=== PATIENT | female | born 1985 | race Native Hawaiian/Other Pacific Islander ===

== ENCOUNTER 2019-03-01 15:50 | Emergency (ER) | payer SELFPAY ==
[2019-03-01 18:32] VITALS: BP 125/91
[2019-03-01] MEDS ORDERED: IBUPROFEN 800 MG TAB PO ONE (18:32)
--- NOTE | 2019-03-01 18:34 | Event Note ---
ED Screening Note Date of service: 03/01/19 Time: 18:31 ED Screening Note: 33 y o f presents withfacial swelling and pain x 2 days denies dental pain states pain is radiating upwards to eyes right sided facial cellulitis This initial assessment/diagnostic orders/clinical plan/treatment(s) is/are subject to change based on patients health status, clinical progression and re- assessment by fellow clinical providers in the ED. Further treatment and workup at subsequent clinical providers discretion. Patient/guardian urged not to elope from the ED as their condition may be serious if not clinically assessed and managed. Initial orders include: motrin in triage acc eval
[2019-03-01] MEDS ORDERED: CLINDAMYCIN 300 MG CAP PO ONE (21:26)
[2019-03-01] MEDS ORDERED: ONDANSETRON 4 MG ODT TAB PO ONE (21:26)
[2019-03-01] MEDS ORDERED: SULFAMETHOXAZOLE/TRIMETHOPRIM 800/160MG DS TAB PO ONE (21:26)
[2019-03-01] MEDS ORDERED: HYDROcodone/ACETAMINOPHEN 5-325 MG TAB PO ONE (21:26)
--- NOTE | 2019-03-01 22:04 | Emergency Department Report ---
ED General Adult HPI - General Chief complaint: Dental/Oral Stated complaint: FACE HURT/FEVER/HEADACHE Source: patient Mode of arrival: Ambulatory Limitations: Language Barrier - History of Present Illness Initial comments: Patient is a 33-year-old female with no past medical history who presents to the ED with complaint of acute onset persistent painful swelling nonfluctuant erythematous maculopapular rash on right occipital facial area for the last 4 days. Patient states that the rash began as a small papule and subsequently increased in size she continued to squeeze and pruritus on the rash to drain the contents. Patient denies dizziness, fever, chills, nausea, vomiting, headache, chest pain, shortness of breath, sore throat, change in vision, traumatic injury, cough or abdominal pain. Patient states that she has been taking [id number] pain medications with no relief. MD Complaint: right facial rash with pain -: Sudden, days(s) (4) Location: face (right maxillary facial area) Radiation: non-radiation Severity scale (0 -10): 10 Quality: aching, sharp Improves with: none Worsens with: none Associated Symptoms: denies other symptoms, rash (erythematous swollen painful nonfluctuant rash). denies: confusion, chest pain, cough, diaphoresis, fever/chills, headaches, loss of appetite, malaise, nausea/vomiting, seizure, shortness of breath, syncope, weakness, other Treatments Prior to Arrival: NSAID - Related Data Previous Rx's Medication Instructions Recorded Last Taken Type Acetaminophen/Codeine [Tylenol 1 tab PO Q6H PRN #12 tab 03/01/19 Unknown Rx /Codeine # 3 tab] Clindamycin [Clindamycin CAP] 300 mg PO Q8HR #60 capsule 03/01/19 Unknown Rx Ibuprofen [Motrin] 800 mg PO Q8HR PRN #24 tablet 03/01/19 Unknown Rx Ondansetron [Zofran Odt] 4 mg PO Q6HR PRN #15 tab.rapdis 03/01/19 Unknown Rx Sulfamethoxazole/Trimethoprim 1 each PO Q12H #20 tablet 03/01/19 Unknown Rx [Bactrim DS TAB] ED Review of Systems ROS: Stated complaint: FACE HURT/FEVER/HEADACHE Other details as noted in HPI Comment: All other systems reviewed and negative Constitutional: denies: chills, fever Eyes: denies: eye pain, eye discharge, vision change ENT: other (right maxillary facial swelling and pain due to mildly erythematous nonfluctuant maculopapular rash). denies: ear pain, throat pain Respiratory: denies: cough, orthopnea, shortness of breath, SOB with exertion, wheezing Cardiovascular: denies: chest pain, palpitations Endocrine: no symptoms reported Gastrointestinal: denies: abdominal pain, nausea, diarrhea Genitourinary: denies: urgency, dysuria, discharge Musculoskeletal: denies: back pain, joint swelling, arthralgia Skin: rash (swollen mildly erythematous nonfluctuant painful right maxillary facial rash), change in color. denies: lesions Neurological: denies: headache, weakness, paresthesias Psychiatric: denies: anxiety, depression Hematological/Lymphatic: denies: easy bleeding, easy bruising ED Past Medical Hx - Past Medical History Previous Medical History?: No - Surgical History Past Surgical History?: Yes Hx Cholecystectomy: Yes - Social History Smoking Status: Never Smoker Substance Use Type: None - Medications Home Medications: Home Medications Medication Instructions Recorded Confirmed Last Taken Type Acetaminophen/Codeine [Tylenol 1 tab PO Q6H PRN #12 tab 03/01/19 Unknown Rx /Codeine # 3 tab] Clindamycin [Clindamycin CAP] 300 mg PO Q8HR #60 capsule 03/01/19 Unknown Rx Ibuprofen [Motrin] 800 mg PO Q8HR PRN #24 tablet 03/01/19 Unknown Rx Ondansetron [Zofran Odt] 4 mg PO Q6HR PRN #15 tab.rapdis 03/01/19 Unknown Rx Sulfamethoxazole/Trimethoprim 1 each PO Q12H #20 tablet 03/01/19 Unknown Rx [Bactrim DS TAB] ED Physical Exam - General Limitations: Language Barrier General appearance: alert, in no apparent distress - Head Head exam: Present: atraumatic, normocephalic, normal inspection - Eye Eye exam: Present: normal appearance, PERRL, EOMI Pupils: Present: normal accommodation - ENT ENT exam: Present: normal orophraynx, mucous membranes moist, TM's normal bilaterally, normal external ear exam, other (swelling, tender, erythematous maculopapular nonfluctuant and rash on right maxillary facial area) - Neck Neck exam: Present: normal inspection, full ROM. Absent: tenderness, lymphadenopathy - Respiratory Respiratory exam: Present: normal lung sounds bilaterally. Absent: respiratory distress, wheezes, rhonchi, accessory muscle use, decreased breath sounds - Cardiovascular Cardiovascular Exam: Present: regular rate, normal rhythm, normal heart sounds. Absent: systolic murmur, diastolic murmur, rubs, gallop - GI/Abdominal GI/Abdominal exam: Present: soft, normal bowel sounds. Absent: tenderness, guarding, rebound, hyperactive bowel sounds, hypoactive bowel sounds, organomegaly, bruit - Extremities Exam Extremities exam: Present: normal inspection, full ROM, normal capillary refill - Back Exam Back exam: Present: normal inspection, full ROM. Absent: tenderness, CVA tenderness (R), CVA tenderness (L), muscle spasm - Neurological Exam Neurological exam: Present: alert, oriented X3, CN II-XII intact, normal gait, reflexes normal - Psychiatric Psychiatric exam: Present: normal affect, normal mood - Skin Skin exam: Present: warm, dry, intact, rash, erythema, other (erythematous maculopapular nonfluctuant rash on right maxillary facial area with tenderness) ED Course Vital Signs 03/01/19 18:29 Temperature 98.0 F Pulse Rate 89 Respiratory 20 Rate Blood Pressure 125/91 O2 Sat by Pulse 100 Oximetry ED Medical Decision Making - Medical Decision Making This is a 33-year-old female who presented to the ED with painful swollen erythematous maculopapular rash on right maxillary facial area for 4 days. In the ED, patient is alert and oriented 3 and is not in distress with normal vital signs. Patient was treated initially for pain and also given oral antibiotics in the ED. On reevaluation, patient's pain is well-controlled with medications. Patient was discharged home on antibiotics and pain medications and was advised to return to the ED immediately if symptoms get worse, otherwise follow up with her primary care physician in 7-10 days for reevaluation. - Differential Diagnosis cellulitis; acute folliculitis; Abcsess Critical care attestation.: If time is entered above; I have spent that time in minutes in the direct care of this critically ill patient, excluding procedure time. ED Disposition Clinical Impression: Cellulitis of face, Acute folliculitis Disposition: TO HOME OR SELFCARE Is pt being admited?: No Does the pt Need Aspirin: No Condition: Stable Instructions: Cellulitis (ED), Folliculitis (ED) Additional Instructions: Take medication with food, drink plenty of fluids and follow-up with your primary care physician in 7-10 days for reevaluation. Return to the ED immediately if symptoms get worse. Prescriptions: Sulfamethoxazole/Trimethoprim [Bactrim DS TAB] 1 each PO Q12H #20 tablet Clindamycin [Clindamycin CAP] 300 mg PO Q8HR #60 capsule Ibuprofen [Motrin] 800 mg PO Q8HR PRN #24 tablet PRN Reason: Pain , Severe (7-10) Acetaminophen/Codeine [Tylenol /Codeine # 3 tab] 1 tab PO Q6H PRN #12 tab PRN Reason: Pain , Severe (7-10) Ondansetron [Zofran Odt] 4 mg PO Q6HR PRN #15 tab.rapdis PRN Reason: Nausea Referrals: PRIMARY CARE, [Primary Care Provider] - 3-5 Days Forms: Work/School Release Form(ED) Time of Disposition: 22:10 Print Language: BAHAM[place]
== END 2019-03-01 22:25 | disposition home or self-care (01) ==
LOC: ED 15:50
DX: L03.211 Cellulitis of face (principal); L73.8 Other specified follicular disorders; Z90.49 Acquired absence of other specified parts of digestive tract; Z79.899 Other long term (current) drug therapy
CPT/HCPCS: 99282; Q0162